=== PATIENT | male | born 1995 | race Caucasian/White ===

== ENCOUNTER 2018-09-02 12:35 | Emergency (ER) | payer BC, OTHER ==
--- NOTE | 2018-09-02 13:13 | RAD REPORT ---
EXAM DESCRIPTION: RAD - Chest Single View - 09/02/2018 1:08 pm CLINICAL HISTORY: Chest pain for 1 week COMPARISON: October 2016 TECHNIQUE: AP portable chest image was obtained 1305 hours . FINDINGS: Lungs are clear. Heart and vasculature are normal. No measurable pleural effusion and no p neumothorax. No acute bony abnormality seen. No acute aortic findings suspected. IMPRESSION: No acute cardiopulmonary process. No suspicious interval change.
[2018-09-02] MEDS ORDERED: NA CHLORIDE 0.9% 1,000 ML ONE (13:14)
[2018-09-02 13:26] LABS: Absolute Lymphocytes (CBC) 1.5 K/uL (0.7-4.9); Absolute Monocytes 0.7 K/uL (0.1-1.3); Absolute Neutrophil 3.7 K/uL (1.8-8.0); Basophils % 0.4 % (0-1.3); Eosinophils % 0.1 % (0-4.4); Hematocrit 47.4 % (39.6-49.0); Lymphocytes % 25.9 % (15.3-44.8); MPV 9.4 fL (7.6-11.3); Monocytes % 12.3 % (3.3-12.3); RBC Red Blood Cell Count 5.16 M/uL (4.33-5.43)
[2018-09-02 13:37] LABS: ALT/SGPT 70 U/L (12-78); AST/SGOT 44 U/L (15-37); Albumin 4.6 g/dL (3.4-5.0); Alkaline Phosphatase 90 U/L (45-117); BUN Blood Urea Nitrogen 9 mg/dL (7-18); Bicarbonate 27 mmol/L (21-32); Bilirubin Direct 0.2 mg/dL (0-0.2); Bilirubin Total 0.6 mg/dL (0.2-1.0); Glucose Level 89 mg/dL (74-106); Lipase 72 U/L (73-393); Potassium 4.1 mmol/L (3.5-5.1); Protein, Total 8.2 g/dL (6.4-8.2); Sodium Level 143 mmol/L (136-145); Troponin (Emerg Dept Use Only) < 0.02 ng/mL (0.0-0.045)
--- NOTE | 2018-09-02 14:44 | ER ---
Nurse's Notes [facility] Name: Song Watters Age: 22 yrs Sex: Male : 1995 Arrival Date: 09/02/2018 Time: 12:36 Bed 4 Private MD: Diagnosis: Chest pain, unspecified Presentation: 09/02 12:45 Presenting complaint: Patient states: i have this chest pain for a week now, and its hj not going away, denies SOB; denies radiation; denies abd pain;. Transition of care: patient was not received from another setting of care. Onset of symptoms was September 02, 2018. Risk Assessment: Do you want to hurt yourself or someone else? Patient reports no desire to harm self or others. Initial Sepsis Screen: Does the patient meet any 2 criteria? No. Patient's initial sepsis screen is negative. Does the patient have a suspected source of infection? No. Patient's initial sepsis screen is negative. Care prior to arrival: None. 12:45 Method Of Arrival: Ambulatory 12:45 Acuity: KENDRICK 3 hj Triage Assessment: 12:47 General: Appears in no apparent distress. uncomfortable, Behavior is calm, cooperative, hj appropriate for age. Pain: Complains of pain in chest. Cardiovascular: Reports chest pain. Historical: - Allergies: 12:47 No Known Allergies; hj - Home Meds: 12:47 None [Active]; hj - PMHx: 12:47 None; hj - PSHx: 12:47 oral sx; hj - Immunization history:: Adult Immunizations up to date. - Social history:: Smoking status: Patient uses tobacco products, Patient uses alcohol. - Ebola Screening: : Patient negative for fever greater than or equal to 101.5 degrees Fahrenheit, and additional compatible Ebola Virus Disease symptoms Patient denies exposure to infectious person Patient denies travel to an Ebola-affected area in the 21 days before illness onset. - Family history:: not pertinent. - Hospitalizations: : No recent hospitalization is reported. Screenin:48 Abuse screen: Denies threats or abuse. Denies injuries from another. Nutritional hj screening: No deficits noted. Tuberculosis screening: No symptoms or risk factors identified. Fall Risk None identified. Assessment: 12:45 General: Appears in no apparent distress. uncomfortable, Behavior is calm, cooperative, hj appropriate for age. Neuro: Level of Consciousness is awake, alert, obeys commands, Oriented to person, place, time, situation, Appropriate for age. Cardiovascular: Reports chest pain, Capillary refill < 3 seconds Patient's skin is warm and dry. Respiratory: Airway is patent Respiratory effort is even, unlabored, Respiratory pattern is regular, symmetrical. GI: No signs and/or symptoms were reported involving the gastrointestinal system. : No signs and/or symptoms were reported regarding the genitourinary system. EENT: No signs and/or symptoms were reported regarding the EENT system. Derm: No signs and/or symptoms reported regarding the dermatologic system. Musculoskeletal: No signs and/or symptoms reported regarding the musculoskeletal system. 12:48 Pain: Pain does not radiate. Pain began a week. hj 13:32 Reassessment: Patient and/or family updated on plan of care and expected duration. Pain hj level reassessed. Patient is alert, oriented x 3, equal unlabored respirations, skin warm/dry/pink. awaiting results and POC:. 14:07 Reassessment: Patient and/or family updated on plan of care and expected duration. Pain hj level reassessed. Patient is alert, oriented x 3, equal unlabored respirations, skin warm/dry/pink. awaiting for POC:. Vital Signs: 12:49 BP 128 / 92; Pulse 98; Resp 18; Temp 98.1(TE); Pulse Ox 98% on R/A; Weight 79.38 kg; hj Height 6 ft. 0 in. (182.88 cm); Pain 5/10; 13:30 BP 130 / 88; Pulse 92; Resp 18; Pulse Ox 100% on R/A; hj 14:21 BP 127 / 90; Pulse 68; Resp 18; Pulse Ox 100% on R/A; hj 12:49 Body Mass Index 23.73 (79.38 kg, 182.88 cm) ED Course: 12:36 Patient arrived in ED. as 12:40 Fernie Quinn MD is Attending Physician. rn 12:45 Austen Davila RN is Primary Nurse. hj 12:45 EKG done, by concrete engineering technician. reviewed by Fernie Quinn MD. sm3 12:46 Triage completed. hj 12:48 Arm band placed on right wrist. hj 12:48 Patient has correct armband on for positive identification. Placed in gown. Bed in low hj position. Call light in reach. Side rails up X2. Adult w/ patient. equipment monitor phototypesetting on. Pulse ox on. NIBP on. 12:49 Patient maintains SpO2 saturation greater than 95% on room air. hj 13:00 Initial lab(s) drawn, by me. Inserted saline lock: 20 gauge in left antecubital area, hj using aseptic technique. Blood collected. 13:04 X-ray completed. Portable x-ray completed in exam room. Patient tolerated procedure sw well. 13:09 XRAY Chest (1 view) In Process Unspecified. EDMS 14:51 No provider procedures requiring assistance completed. IV discontinued, intact, hj bleeding controlled, No redness/swelling at site. Pressure dressing applied. Administered Medications: 13:00 Drug: NS 0.9% 1000 ml Route: IV; Rate: 1000 ml; Site: right antecubital; hj 14:10 Follow up: IV Status: Completed infusion; IV Intake: 1000ml hj Intake: 14:10 IV: 1000ml; Total: 1000ml. hj Outcome: 14:43 Discharge ordered by . rn 14:52 Discharged to home ambulatory, with family. hj 14:52 Condition: stable 14:52 Discharge instructions given to patient, family, Instructed on discharge instructions, follow up and referral plans. Demonstrated understanding of instructions, follow-up care. 14:54 Patient left the ED. hj Signatures: Dispatcher [employer] Leilani Dawn Roman, MD MD rn Warren, Shannon sw Joaquin, Henry, RN RN hj Montes, Shakira 3 Corrections: (The following items were deleted from the chart) 13:37 12:45 Presenting complaint: Patient states: i have this chest pain for a weak now, and hj its not going away, denies SOB; denies radiation; denies abd pain; hj 14:22 14:08 BP 130 / 88; Pulse 92bpm; Resp 18bpm; Pulse Ox 100% RA; hj hj
--- NOTE | 2018-09-02 14:44 | EDPHYS ---
Physician Documentation [facility] Name: Song Watters Age: 22 yrs Sex: Male : 1995 Arrival Date: 09/02/2018 Time: 12:36 Bed 4 Private MD: ED Physician Fernie Quinn HPI: 09/02 13:31 This 22 yrs old Male presents to ER via Ambulatory with complaints of Chest rn Pain. 13:31 The patient or guardian reports chest pain that is located primarily in the anterior rn chest wall, left. The pain does not radiate. Associated signs and symptoms: Pertinent positives: lightheadedness, Pertinent negatives: abdominal pain, cough, diaphoresis, headache, recent travel, shortness of breath, syncope. The chest pain is described as aching. Duration: The patient or guardian reports multiple episodes, that are intermittent. Modifying factors: The symptoms are alleviated by nothing. the symptoms are aggravated by nothing. Severity of pain: At its worst the pain was mild in the emergency department the pain is unchanged. The patient has experienced a previous episode. Reports chest pain, left sided, non-radiating, noticed intermittent for last week, no trauma, no fever/cough/sob/abd pain. + famhx of cardiac problems but none at his age. Different type of chest pain but seen last year for chest pain and had elevated troponin, transferred to [place], and they thought was "bad test". Told had acid reflux. Reports working outside today, felt lightheaded, no syncope. Has not eaten or taken in much water today. Feels thirsty. . Historical: - Allergies: 12:47 No Known Allergies; - Home Meds: 12:47 None [Active]; - PMHx: 12:47 None; - PSHx: 12:47 oral sx; - Immunization history:: Adult Immunizations up to date. - Social history:: Smoking status: Patient uses tobacco products, Patient uses alcohol. - Ebola Screening: : Patient negative for fever greater than or equal to 101.5 degrees Fahrenheit, and additional compatible Ebola Virus Disease symptoms Patient denies exposure to infectious person Patient denies travel to an Ebola-affected area in the 21 days before illness onset. - Family history:: not pertinent. - Hospitalizations: : No recent hospitalization is reported. ROS: 13:31 Constitutional: Negative for fever, chills, and weight loss, Eyes: Negative for injury, rn pain, redness, and discharge, Neck: Negative for injury, pain, and swelling, Cardiovascular: Negative for edema Respiratory: Negative for shortness of breath, cough, wheezing, and pleuritic chest pain, Abdomen/GI: Negative for abdominal pain, nausea, vomiting, diarrhea, and constipation, MS/Extremity: Negative for injury and deformity, Neuro: Negative for headache, weakness, numbness, tingling, and seizure. Exam: 13:31 Constitutional: This is a well developed, well nourished patient who is awake, alert, rn and in no acute distress. Ambulatory to room without assistance. Head/Face: Normocephalic, atraumatic. Eyes: Pupils equal round and reactive to light, extra-ocular motions intact. Lids and lashes normal. Conjunctiva and sclera are non-icteric and not injected. Cornea within normal limits. Periorbital areas with no swelling, redness, or edema. ENT: dry MM and lips Cardiovascular: Regular rate and rhythm with a normal S1 and S2. No pulse deficits. Respiratory: Lungs have equal breath sounds bilaterally, clear to auscultation. No increased work of breathing, no retractions or nasal flaring. Abdomen/GI: soft, non-tender Skin: Warm, dry MS/ Extremity: Pulses equal, no cyanosis. Neurovascular intact. Full, normal range of motion. Equal circumference. Neuro: Awake and alert, GCS 15, oriented to person, place, time, and situation. Cranial nerves II-XII grossly intact. Motor strength 5/5 in all extremities. Sensory grossly intact. Cerebellar exam normal. Normal gait. 14:29 ECG was reviewed by the Attending Physician. rn Vital Signs: 12:49 BP 128 / 92; Pulse 98; Resp 18; Temp 98.1(TE); Pulse Ox 98% on R/A; Weight 79.38 kg; hj Height 6 ft. 0 in. (182.88 cm); Pain 5/10; 13:30 BP 130 / 88; Pulse 92; Resp 18; Pulse Ox 100% on R/A; hj 14:21 BP 127 / 90; Pulse 68; Resp 18; Pulse Ox 100% on R/A; hj 12:49 Body Mass Index 23.73 (79.38 kg, 182.88 cm) hj MDM: 12:40 Patient medically screened. rn 14:39 Differential diagnosis: acute pericarditis, anxiety, chest wall pain, costochondritis, rn esophagitis, gastritis, gastroesophageal reflux disease (GERD), pericarditis, pleurisy, pneumothorax, pulmonary embolus. Data reviewed: vital signs, nurses notes, lab test result(s), EKG, radiologic studies, plain films, and as a result, I will discharge patient. Counseling: I had a detailed discussion with the patient and/or guardian regarding: the historical points, exam findings, and any diagnostic results supporting the discharge/admit diagnosis, lab results, radiology results, the need for outpatient follow up, to return to the emergency department if symptoms worsen or persist or if there are any questions or concerns that arise at home. Response to treatment: the patient's symptoms have mildly improved after treatment, and as a result, I will discharge patient. Special discussion: Based on the patient's history, exam, and Dx evaluation, there is no indication for emergent intervention or inpatient Tx. It is understood by the patient/guardian that if the Sx's persist or worsen they need to return immediately for re-evaluation. I discussed with the patient/guardian in detail that at this point there is no indication for admission to the hospital. It is understood, however, that if the symptoms persist or worsen the patient needs to return immediately for re-evaluation. ED course: No clear etiology found for chest pain, neg trop, no ischemia on ecg, cxr normal, d-dimer negative, will dc home with return precautions. Patient reports pain better with ROM. . 09/02 12:52 Order name: Basic Metabolic Panel; Complete Time: 14: rn 09/02 12:52 Order name: CBC with Diff; Complete Time: 13: rn 09/02 12:52 Order name: LFT's; Complete Time: : rn 09/02 12:52 Order name: Troponin (emerg Dept Use Only); Complete Time: 14: rn 09/02 12:52 Order name: Lipase; Complete Time: :09/02 12:52 Order name: D-Dimer; Complete Time: 14: rn 09/02 12:52 Order name: XRAY Chest (1 view); Complete Time: 13: rn 09/02 12:52 Order name: EKG; Complete Time: 12:54 rn 09/02 12:52 Order name: Cardiac monitoring; Complete Time: 12:53 rn 09/02 12:52 Order name: EKG - Nurse/Tech; Complete Time: 12:53 rn 09/02 12:52 Order name: IV Saline Lock; Complete Time: 13:03 rn 09/02 12:52 Order name: Labs collected and sent; Complete Time: 13:03 rn 09/02 12:52 Order name: O2 Per Protocol; Complete Time: 12: rn 09/02 12:52 Order name: O2 Sat Monitoring; Complete Time: 12: rn EC:29 Rate is 95 beats/min. Rhythm is regular. QRS [place] is Normal. [place] interval is normal. QRS rn interval is normal. QT interval is normal. No Q waves. T waves are Normal. No ST changes noted. Clinical impression: Normal ECG. Interpreted by me. Administered Medications: 13:00 Drug: NS 0.9% 1000 ml Route: IV; Rate: 1000 ml; Site: right antecubital; 14:10 Follow up: IV Status: Completed infusion; IV Intake: 1000ml Disposition: 09/02/18 14:43 Discharged to Home. Impression: Chest pain, unspecified. - Condition is Stable. - Discharge Instructions: Nonspecific Chest Pain. - Medication Reconciliation Form, Thank You Letter, Antibiotic Education, Prescription Opioid Use form. - Follow up: Private Physician; When: As needed; Reason: Recheck today's complaints, Re-evaluation by your physician. - Problem is new. - Symptoms have improved. Signatures: Dispatcher [employer] EDNV Fernie Quinn MD MD rn Joaquin, Henry, RN RN hj Corrections: (The following items were deleted from the chart) 14:54 14:43 09/02/2018 14:43 Discharged to Home. Impression: Chest pain, unspecified. hj Condition is Stable. Forms are Medication Reconciliation Form, Thank You Letter, Antibiotic Education, Prescription Opioid Use. Follow up: Private Physician; When: As needed; Reason: Recheck today's complaints, Re-evaluation by your physician. Problem is new. Symptoms have improved. rn
--- NOTE | 2018-09-02 15:11 | EKG ---
Test Date: 2018-09-02 Test Time: 12:45:38 Scissors Grinder: GM MEASUREMENT RESULTS: Intervals: Rate: 95 IL: 124 QRSD: 90 QT: 356 QTc: 447 [place]: P: 47 IL: 124 QRS: 87 T: 56 INTERPRETIVE STATEMENTS: Sinus rhythm with marked sinus arrhythmia Otherwise normal ECG Compared to ECG 11/04/2016 03:02:17 No significant changes Electronically Signed On 09-02-18 15:10:45 CDT by Guru Eid
== END 2018-09-02 14:54 | disposition home or self-care (01) ==
LOC: ER 12:35
DX: R07.9 Chest pain, unspecified (principal); Z72.0 Tobacco use
CPT/HCPCS: 36415; 71045; 80048; 80076; 83690; 84484; 85025; 85379; 93005; 96360; 99285; J7030